=== PATIENT | male | born 1975 | race American Indian/Alaskan Native ===

== ENCOUNTER 2017-03-29 12:09 | Inpatient (IN) | payer MEDICARE ==
[2017-03-29] MEDS ORDERED: KEPPRA 1,000 MG/NS 0.75% 100ML 1,000 MG/100 ML BAG IV ONE ×2 (12:17→12:19)
[2017-03-29] MEDS ORDERED: NACL 0.9% 1000 ML 1,000 ML IV ONE (12:19)
[2017-03-29 12:35] LABS: Urine Drugs of Abuse Note Disclamer
[2017-03-29 12:48] LABS: Bilirubin,Urine NEG (Negative); Blood,Urine NEG (Negative); Ketones,Urine NEG (Negative); Leukocyte Esterase,Urine NEG (Negative); Nitrite,Urine NEG (Negative); Protein,Urine <15 mg/dL mg/dL (Negative); RBC,Urine < 1.0 /HPF (0.0-6.0); Urobilinogen,Urine < 2.0 mg/dL (<2.0); WBC,Urine < 1.0 /HPF (0.0-6.0)
[2017-03-29 13:06] LABS: Basophils % (Auto) 0.5 % (0.0-1.8); Eosinophils % (Auto) 3.5 % (0.0-4.3); Hemoglobin 11.6 gm/dl (11.8-15.2); Mean Corpuscular HGB Conc 33 % (32-34); Mean Corpuscular Hemoglobin 30 pg (28-32); Mean Corpuscular Volume 91 fl (84-94); Platelet Count 204 K/mm3 (140-440); Red Blood Count 3.84 M/mm3 (3.65-5.03); Red Cell Distribution Width 13.1 % (13.2-15.2)
[2017-03-29 13:18] LABS: Alanine Aminotransferase 11 units/L (7-56); Albumin 4.2 g/dL (3.9-5); Albumin/Globulin Ratio 1.7 %; Alkaline Phosphatase 62 units/L (35-129); Anion Gap 28 mmol/L; BUN/Creatinine Ratio 9.09; Bilirubin,Total < 0.20 mg/dL (0.1-1.2); Blood Urea Nitrogen 10 mg/dL (9-20); Calcium 8.6 mg/dL (8.4-10.2); Carbon Dioxide 18 mmol/L (22-30); Chloride 99.5 mmol/L (98-107); Glucose 93 mg/dL (75-100); Potassium 3.7 mmol/L (3.6-5.0); Sodium 142 mmol/L (137-145); Total Protein 6.7 g/dL (6.3-8.2)
--- NOTE | 2017-03-29 13:19 | Cat Scan Report ---
CT scan of head without contrast: Compare to 02/23/15. History: Seizure. Findings: Evidence of left occipital craniotomy with encephalomalacia of the adjacent brain parenchyma with dilatation of the adjacent lateral ventricle. No significant interval change. No midline shift. Cortical atrophy. No acute ischemia. No extra-axial fluid collection. Impression: Findings as detailed above. No acute intracranial abnormality.
[2017-03-29 13:26] LABS: Bilirubin,Direct < 0.2 mg/dL (0-0.2)
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
--- NOTE | 2017-03-29 14:22 | XRay Report ---
Single view chest: History: Difficulty breathing. Findings: Normal cardiomediastinal silhouette. Trachea is midline. No consolidation, pneumothorax or pleural effusion. Impression: No acute cardiopulmonary findings.
[2017-03-29] MEDS ORDERED: TYLENOL PO PRN (14:51)
[2017-03-29] MEDS ORDERED: DULCOLAX PR PRN (14:51)
[2017-03-29] MEDS ORDERED: ZOFRAN IV PRN (14:51)
[2017-03-29] MEDS ORDERED: MILK OF MAGNESIA PO PRN (14:51)
[2017-03-29] MEDS ORDERED: PROVENTIL IH PRN (14:51)
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
[2017-03-29] MEDS ORDERED: NACL 0.45% 1000 ML 1,000 ML IV SCH (15:00)
--- NOTE | 2017-03-29 15:08 | Admit Criteria Form ---
Admission Criteria Documentation: SEIZURE Clinical Indications for Admission to Inpatient Care (Place 'X' for any and all applicable criteria): Admission is indicated for seizure and ANY ONE of the following(1)(2)(3)(4)(5): [ X]I. Inpatient admission required rather than observation care (Also use Seizure: Observation Care Criteria as appropriate) because of ANY ONE of the following: [ ]a) Altered mental status that is severe or persistent [ ]b) New focal neurologic deficit that is severe or persistent [ ]c) Metabolic disorder (eg, hypoglycemia, hyponatremia) that is severe or persistent [X ]d) Recurrent seizure [ ]e) Outpatient antiseizure regimen cannot be established (eg , patient cannot tolerate medication, initiation requires inpatient care) [ ]f) Need for ongoing intravenous infusion of antiseizure medication [ ]g) Cardiac arrhythmias of immediate concern [ ]h) Cerebral bleeding, hydrocephalus, or vasospasm monitoring (14) [ ]i) Increased intracranial pressure or cerebral edema monitoring (15) [ ]j) Other treatment or monitoring requiring inpatient admission [ ]II. Status epilepticus [A] or repetitive seizures not controlled with emergent treatment (6)(8) [ ]III. Brain disorder (eg, tumor, edema, and hydrocephalus) that requiring monitoring or intervention available only at inpatient level of care. [ ]IV. Brain insult (eg, severe trauma, stroke, drug toxicity, or withdrawal) that requires monitoring or intervention available only at inpatient level of care (10)(11) Extended stay beyond goal length of stay may be needed for (22) [ ]a) Complications of status epilepticus [ ]b) Refractory status epilepticus [ ]c) Etiology-specific therapy for conditions such as [employer] infection, head injury,eclampsia, severe metabolic abnormalities, and brain tumor [ ]d) Residual neurologic damage, [ ]e) Initiation of significant change to anticonvulsant treatment [ ]f) Older patients (65 years or older) [ ]g) Patient requiring intubation (eg, to protect airway) The original [facility] content created by [employer] has been revised. The portions of the content which have been revised are identified through the use of italic text or in bold, and [facility] [employer] has neither reviewed nor approved the modified material. All other unmodified content is copyright [facility] [employer]. Please see references footnoted in the original [facility] edition 2016 Admission Criteria Met: Yes
[2017-03-30 00:59] VITALS: BP 109/59
== END 2017-03-30 00:30 | disposition left against medical advice (07) | DRG 100 ==
LOC: ED 12:09 → 3A 14:51
PROVIDERS: ADMIT Internal Medicine; ATTEND Internal Medicine
DX: G40.901 Epilepsy, unspecified, not intractable, with status epilepticus (principal); J96.00 Acute respiratory failure, unspecified whether with hypoxia or hypercapnia; Z82.49 Family history of ischemic heart disease and other diseases of the circulatory system
CPT/HCPCS: 36415; 70450; 71010; 80048; 80074; 80307; 80320; 81001; 85025; 96361; 96365; G0480; J1953; J7030

== ENCOUNTER 2020-08-14 13:44 | Emergency (ER) | payer MEDICARE ==
[2020-08-14] MEDS ORDERED: levETIRAcetam 1000 MG/NS 0.75% 1,000 MG/100 ML BAG IV ONE (13:51)
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
[2020-08-14 15:38] LABS: Basophils % (Auto) 0.8 % (0.0-1.8); Eosinophils # (Auto) 0.1 K/mm3 (0.0-0.4); Eosinophils % (Auto) 2.3 % (0.0-4.3); Hematocrit 38.1 % (35.5-45.6); Hemoglobin 12.6 gm/dl (11.8-15.2); Lymphocytes # (Auto) 0.7 K/mm3 (1.2-5.4); Lymphocytes % (Auto) 12.3 % (13.4-35.0); Mean Corpuscular HGB Conc 33 % (32-34); Mean Corpuscular Volume 92 fl (84-94); Monocytes # (Auto) 0.3 K/mm3 (0.0-0.8); Monocytes % (Auto) 4.7 % (0.0-7.3); Platelet Count 258 K/mm3 (140-440); Red Blood Count 4.16 M/mm3 (3.65-5.03); Red Cell Distribution Width 13.4 % (13.2-15.2)
[2020-08-14 15:41] LABS: Blood Urea Nitrogen 5 mg/dL (9-20); Calcium 9.1 mg/dL (8.4-10.2); Hemolysis Index 17
[2020-08-14 15:42] LABS: BUN/Creatinine Ratio 7
[2020-08-14 18:12] VITALS: BP 118/72
--- NOTE | 2020-08-14 18:23 | Cat Scan Report ---
CT BRAIN: 08/14/2020 INDICATION / CLINICAL INFORMATION: seizure, postictal. COMPARISON: 03/29/2017 FINDINGS: BRAIN/INTRACRANIAL STRUCTURES: Unenhanced CT images of the brain were obtained and compared to the pr ior exam from 03/29/2017. Overall, there is been no change. Again seen is the postcraniotomy site in the left parietal lobe, with prominent underlying cortical a nd subcortical encephalomalacia and dystrophic calcification. There is some mild encephalomalacia in the medial aspect of the right parietal lobe, adjacent to this larger postoperative site. There is no evidence of acute superimposed abnormality. Ventricles and sulci are otherwise normal in size and shape. There is no evidence of hemorrhage. There are no abnormal extra-axial fluid collections. EXTRACRANIAL STRUCTURES: Unremarkable. IMPRESSION: No acute abnormality. Stable postoperative changes, unchanged when compared to 03/29/2017. All CT scans at this location are performed using dose reduction to ALARA by means of automated expos ure control. Signer Name: Cruz Dunham MD Signed: 08/14/2020 6:18 PM Workstation Name: [id number]
== END 2020-08-14 19:40 | disposition home or self-care (01) ==
LOC: ED 13:44
DX: G40.909 Epilepsy, unspecified, not intractable, without status epilepticus (principal); Z87.891 Personal history of nicotine dependence; Z79.899 Other long term (current) drug therapy
CPT/HCPCS: 36415; 70450; 80048; 83735; 85025; 96374; 99284; J1953

== ENCOUNTER 2020-08-16 02:27 | Emergency (ER) | payer MEDICARE ==
[2020-08-16 04:35] VITALS: BP 131/74
--- NOTE | 2020-08-16 06:13 | XRay Report ---
Right hand-3 views INDICATION: right hand pain. COMPARISON: None. IMPRESSION: No acute osseous or soft tissue abnormality. No significant DJD. Signer Name: José Miguel Beard MD Signed: 08/16/2020 6:08 AM Workstation Name: [id number]
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
== END 2020-08-16 07:42 | disposition home or self-care (01) ==
LOC: ED 02:27
DX: M25.541 Pain in joints of right hand (principal); G89.29 Other chronic pain; Z98.890 Other specified postprocedural states; Z79.899 Other long term (current) drug therapy
CPT/HCPCS: 36415; 80053; 83735; 85025

== ENCOUNTER 2020-08-16 19:49 | Emergency (ER) | payer MEDICARE ==
--- NOTE | 2020-08-16 20:46 | Event Note ---
ED Screening Note Date of service: 08/16/20 Time: 20:45 ED Screening Note: Here with complaints of multiple seizures today here for same 08/14/20 This initial assessment/diagnostic orders/clinical plan/treatment(s) is/are subject to change based on patients health status, clinical progression and re- assessment by fellow clinical providers in the ED. Further treatment and workup at subsequent clinical providers discretion. Patient/guardian urged not to elope from the ED as their condition may be serious if not clinically assessed and managed. Initial orders include: labs ekg
[2020-08-16 20:49] VITALS: BP 123/52
[2020-08-16 21:59] LABS: Alanine Aminotransferase 12 units/L (7-56); Albumin 4.3 g/dL (3.9-5); BUN/Creatinine Ratio 10; Blood Urea Nitrogen 9 mg/dL (9-20); Calcium 9.2 mg/dL (8.4-10.2); Hemolysis Index 7
[2020-08-16 22:04] LABS: Basophils # (Auto) 0.1 K/mm3 (0.0-0.1); Basophils % (Auto) 1.9 % (0.0-1.8); Eosinophils # (Auto) 0.3 K/mm3 (0.0-0.4); Eosinophils % (Auto) 4.8 % (0.0-4.3); Hematocrit 34.5 % (35.5-45.6); Hemoglobin 12.1 gm/dl (11.8-15.2); Lymphocytes # (Auto) 1.6 K/mm3 (1.2-5.4); Lymphocytes % (Auto) 27.2 % (13.4-35.0); Mean Corpuscular HGB Conc 35 % (32-34); Mean Corpuscular Volume 91 fl (84-94); Monocytes # (Auto) 0.7 K/mm3 (0.0-0.8); Monocytes % (Auto) 11.3 % (0.0-7.3); Platelet Count 244 K/mm3 (140-440); Red Blood Count 3.78 M/mm3 (3.65-5.03); Red Cell Distribution Width 13.4 % (13.2-15.2)
== END 2020-08-16 23:25 | disposition left against medical advice (07) ==
LOC: ED 19:49
DX: R56.9 Unspecified convulsions (principal); Z53.21 Procedure and treatment not carried out due to patient leaving prior to being seen by health care provider
CPT/HCPCS: 36415; 80053; 83735; 85025